=== PATIENT | male | born 1960 | race Caucasian/White ===

== ENCOUNTER 2018-11-04 09:42 | Inpatient (IN) ==
[2018-11-04] MEDS ORDERED: ALUM/MAG/SIMETH/LIDO VISC 1:1 30 ML BOTTLE PO STA (10:05)
[2018-11-04] MEDS ORDERED: ASPIRIN 325 MG TABLET PO STA (10:05)
[2018-11-04] MEDS ORDERED: NITROGLYCERIN SL 0.4 MG TABLET SL PRN (10:05)
[2018-11-04] MEDS ORDERED: ALUM/MAG/SIMETH/LIDO VISC 1:1 30 ML BOTTLE PO ONE (10:06)
[2018-11-04 10:18] LABS: Basophils # 0.1 10*3/uL (0.0-0.2); Basophils % 0.8 % (0.0-0.8); Eosinophils # 0.1 10*3/uL (0.0-0.87); Eosinophils % 0.9 % (0.00-10.9); Hematocrit 36.8 VOL% (42.0-52.0); Hemoglobin 12.8 GM/DL (14.0-18.0); Immature Granulocytes % 0.3 %; Immature Granulocytes Absolute 0.02 #; Lymphocytes # 1.7 10*3/uL (1.4-4.0); Lymphocytes % 21.2 % (21.2-54.2); Mean Corpuscular HGB Conc 34.8 GM/DL (32-36); Mean Platelet Volume 9.9 FL (9.6-12.0); Monocytes % 7.3 % (1.7-12.7); Neutrophils % 69.5 % (38.7-73.9); Platelet Count 321 T/CUMM (130-400); Red Blood Count 4.33 MC/CUMM (3.8-5.5); Red Cell Distribution Width 12.4 % (9.3-17.3); White Blood Count 7.9 T/CUMM (4-12)
[2018-11-04 10:55] LABS: Calcium 8.8 MG/DL (8.5-10.1); Osmolality,Calculated 280.4 MOS/KG (273-304)
[2018-11-04] MEDS ORDERED: ACETAMINOPHEN 325 MG TABLET PO PRN (11:53)
[2018-11-04] MEDS ORDERED: DOCUSATE SODIUM 100 MG CAPSULE PO PRN (11:53)
[2018-11-04] MEDS ORDERED: ALBUTEROL/IPRATROPIUM 3 ML NEB RESP TX PRN (11:57)
[2018-11-04] MEDS: ENOXAPARIN 40 MG/0.4 ML SYRINGE SUBCUT SCH (12:21)
[2018-11-04 12:32] LABS: Thyroid Stimulating Hormone 1.61 uIU/ml (0.358-3.74); VLDL CHOLESTEROL 37.8 MG/DL
[2018-11-04] MEDS: PANTOPRAZOLE 40 MG TABLET PO SCH (14:07)
[2018-11-04 17:47] LABS: Apearance,Urine CLEAR (Clear); Bilirubin,Urine Negative (Negative); Blood, Urine Negative (Negative); Glucose,Urine (UA) Negative (Negative); Hyaline Casts,Urine 16 /LPF (0-3); Ketones,Urine Negative (Negative); Mucus,Urine Few /LPF (Occasional); Nitrite,Urine Negative (Negative); Protein,Urine Negative; RBC,Urine 1 /HPF (0-4); Urine Color Yellow (Yellow); Urine Urobilinogen < 2.0 EU/DL (0.2-1.0)
[2018-11-04] MEDS: ATORVASTATIN 20 MG TABLET PO SCH (21:06)
[2018-11-04] MEDS: CARVEDILOL 6.25 MG TABLET PO SCH (21:06)
[2018-11-04] MEDS: HydrOXYzine PAMOATE 50 MG CAPSULE PO SCH (21:06)
[2018-11-05 03:05] LABS: Basophils # 0.1 10*3/uL (0.0-0.2); Basophils % 0.7 % (0.0-0.8); Eosinophils # 0.1 10*3/uL (0.0-0.87); Eosinophils % 1.4 % (0.00-10.9); Hemoglobin 11.5 GM/DL (14.0-18.0); Immature Granulocytes % 0.3 %; Immature Granulocytes Absolute 0.03 #; Lymphocytes % 21.2 % (21.2-54.2); Mean Corpuscular HGB Conc 33.8 GM/DL (32-36); Mean Corpuscular Volume 86.5 FL (87-102); Mean Platelet Volume 9.7 FL (9.6-12.0); Monocytes % 10.6 % (1.7-12.7); Neutrophils % 65.8 % (38.7-73.9); Platelet Count 292 T/CUMM (130-400); Red Blood Count 3.93 MC/CUMM (3.8-5.5); Red Cell Distribution Width 12.5 % (9.3-17.3); White Blood Count 9.2 T/CUMM (4-12)
[2018-11-05 03:36] LABS: Calcium 8.5 MG/DL (8.5-10.1); Osmolality,Calculated 272.8 MOS/KG (273-304)
[2018-11-05] MEDS ORDERED: diphenhydrAMINE CAP 25 MG CAPSULE PO ONE (08:35)
[2018-11-05] MEDS ORDERED: DIAZEPAM 5 MG TABLET PO ONE (08:35)
[2018-11-05] MEDS ORDERED: MAGNESIUM SULF RIDER 2 GM in PREMIX 1 EACH IV PRN (08:35)
[2018-11-05] MEDS ORDERED: POTASSIUM CHLORIDE RIDER 10 MEQ in PREMIX 1 EACH IV PRN (08:35)
[2018-11-05] MEDS: busPIRone 15 MG TABLET PO SCH (09:44)
[2018-11-05] MEDS: PANTOPRAZOLE 40 MG TABLET PO SCH (09:44)
[2018-11-05] MEDS: HydrOXYzine PAMOATE 50 MG CAPSULE PO SCH ×2 (09:44→21:20)
[2018-11-05] MEDS ORDERED: ASPIRIN EC 325 MG TABLET PO STA (10:54)
[2018-11-05] MEDS ORDERED: ASPIRIN EC 325 MG TABLET PO ONE (11:00)
[2018-11-05] MEDS ORDERED: LIDOCAINE 1% 20 ML VIAL ONE (11:15)
[2018-11-05] MEDS: amLODIPine 10 MG TABLET PO SCH (11:57)
[2018-11-05] MEDS: SODIUM CHLORIDE 0.9% 1,000 ML IV SCH ×2 (11:58→17:19)
[2018-11-05] MEDS: CARVEDILOL 6.25 MG TABLET PO SCH ×2 (11:58→17:53)
[2018-11-05] MEDS: LISINOPRIL/HCTZ 20-25 MG TABLET PO SCH (11:58)
[2018-11-05] MEDS: ENOXAPARIN 40 MG/0.4 ML SYRINGE SUBCUT SCH (11:59)
[2018-11-05] MEDS ORDERED: fentaNYL 100 MCG/2 ML VIAL ONE (12:29)
[2018-11-05] MEDS ORDERED: MIDAZOLAM 2 MG/2 ML VIAL ONE (12:29)
[2018-11-05] MEDS ORDERED: TIROFIBAN 5,000 MCG/100 ML PREMIX IV ONE (13:03)
[2018-11-05] MEDS ORDERED: ENOXAPARIN 60 MG/0.6 ML SYRINGE ONE (13:03)
[2018-11-05] MEDS ORDERED: ADENOSINE 90 MG/30 ML VIAL IV ONE (13:24)
[2018-11-05] MEDS ORDERED: CLOPIDOGREL 300 MG TABLET ONE (13:45)
[2018-11-05] MEDS ORDERED: TIROFIBAN 5,000 MCG/100 ML PREMIX IV SCH (14:00)
[2018-11-05] MEDS: ATORVASTATIN 20 MG TABLET PO SCH (21:20)
[2018-11-06] MEDS: SODIUM CHLORIDE 0.9% 1,000 ML IV SCH ×2 (02:04→10:37)
[2018-11-06 03:38] LABS: Basophils # 0.1 10*3/uL (0.0-0.2); Basophils % 0.7 % (0.0-0.8); Eosinophils # 0.2 10*3/uL (0.0-0.87); Eosinophils % 2.1 % (0.00-10.9); Hematocrit 31.6 VOL% (42.0-52.0); Hemoglobin 10.7 GM/DL (14.0-18.0); Immature Granulocytes % 0.4 %; Immature Granulocytes Absolute 0.03 #; Lymphocytes % 28.3 % (21.2-54.2); Mean Corpuscular HGB Conc 33.9 GM/DL (32-36); Mean Corpuscular Volume 87.8 FL (87-102); Mean Platelet Volume 9.9 FL (9.6-12.0); Monocytes % 10.4 % (1.7-12.7); Neutrophils % 58.1 % (38.7-73.9); Platelet Count 255 T/CUMM (130-400); Red Cell Distribution Width 12.6 % (9.3-17.3)
[2018-11-06 04:00] LABS: Calcium 8.2 MG/DL (8.5-10.1); Osmolality,Calculated 277.7 MOS/KG (273-304)
[2018-11-06] MEDS ORDERED: ASPIRIN 325 MG TABLET PO SCH (09:00)
[2018-11-06] MEDS ORDERED: CLOPIDOGREL 75 MG TABLET PO SCH (09:00)
[2018-11-06] MEDS ORDERED: POTASSIUM CHLORIDE 20 MEQ TABLET PO SCH (09:30)
[2018-11-06] MEDS: busPIRone 15 MG TABLET PO SCH (09:39)
[2018-11-06] MEDS: PANTOPRAZOLE 40 MG TABLET PO SCH (09:39)
[2018-11-06] MEDS: HydrOXYzine PAMOATE 50 MG CAPSULE PO SCH (09:40)
[2018-11-06] MEDS: CARVEDILOL 6.25 MG TABLET PO SCH (09:40)
[2018-11-06] MEDS: LISINOPRIL/HCTZ 20-25 MG TABLET PO SCH (10:38)
[2018-11-06] MEDS: amLODIPine 10 MG TABLET PO SCH (10:38)
[2018-11-06 11:46] VITALS: BP 110/63
[2018-11-06] MEDS: ENOXAPARIN 40 MG/0.4 ML SYRINGE SUBCUT SCH (12:19)
== END 2018-11-06 15:15 | DRG 247 ==
LOC: N.EDINP 09:42 → N.ED 09:42 → N.EDINP 14:53 → N.5E 15:09 → N.TELES 11-05 14:24 → N.SDSINP 11-05 14:24 → UNDODISOB 11-06 15:15
PROC: CLCCHCL (ICD-10-PCS; 2018-11-05 12:15)